=== PATIENT | male | born 1965 | race African-American/Black ===

== ENCOUNTER 2020-10-16 18:50 | Inpatient (IN) | payer BC, OTHER ==
[~2020-10-16] VITALS: Ht 188 cm; Wt 106.8 kg
[2020-10-16] MEDS ORDERED: SODIUM CHLORIDE FLUSH 10ML SYR IVF ONE (19:30)
[2020-10-16] MEDS ORDERED: SODIUM CHLORIDE 0.9% 1,000ML IVBOLUS ONE (19:30)
--- NOTE | 2020-10-16 19:34 | NUR ---
po fluids given
[2020-10-16 19:43] LABS: BASOPHILS % (AUTO) 0 % (0-1); EOSINOPHILS % (AUTO) 0 % (1-7); LYMPHOCYTES % (AUTO) 15 % (22-44); MEAN CORPUSCULAR HEMOGLOBIN 29.8 pg (27.5-34.5); MEAN CORPUSCULAR HGB CONC 34.2 g/dL (33.2-36.2); MEAN PLATELET VOLUME 7.7 fL (7.4-10.4); MONOCYTES % (AUTO) 10 % (2-9); NEUTROPHILS % (AUTO) 75 % (42-75); PLATELET COUNT 322 x10^3/uL (130-400); RED BLOOD COUNT 4.46 x10^6/uL (4.38-5.82); RED CELL DISTRIBUTION WIDTH 12.6 % (9.4-14.8)
[2020-10-16 19:55] LABS: ALANINE AMINOTRANSFERASE 53 U/L (12-78); ALBUMIN 3.1 g/dL (3.4-5.0); ANION GAP 6 mmol/L (5-15); CALCIUM 8.4 mg/dL (8.5-10.1); CHLORIDE 96 mmol/L (98-107); CREATININE 1.65 mg/dL (0.7-1.3)
[2020-10-16 20:00] LABS: ALKALINE PHOSPHATASE 170 U/L (45-117); BILIRUBIN,TOTAL 1.9 mg/dL (0.2-1.0); TOTAL PROTEIN 7.2 g/dL (6.4-8.2); TROPONIN I < 0.015 ng/mL (0.000-0.045)
--- NOTE | 2020-10-16 21:15 | NUR ---
pt resting in bed in nad
[2020-10-16] MEDS ORDERED: HYDR12.59 PO (21:37)
[2020-10-16] MEDS ORDERED: CEFTRIAXONE 1,000 MG ONE (21:47)
[2020-10-16] MEDS ORDERED: CEFTRIAXONE 1,000 MG IM ONE (22:00)
[2020-10-16] MEDS ORDERED: AZITHROMYCIN 500 MG in SODIUM CHLORIDE 0.9% 250 ML IV ONE (22:00)
[2020-10-16] MEDS ORDERED: SODIUM CHLORIDE 0.9%, 500ML IVBOLUS ONE (22:00)
--- NOTE | 2020-10-16 22:12 | NUR ---
rport to dione pt to floor with tech
--- NOTE | 2020-10-16 22:15 | NUR ---
blood cultures were drawn before abx given
[2020-10-16] MEDS ORDERED: ONDANSETRON ODT 4 MG PO PRN (22:30)
[2020-10-16] MEDS ORDERED: BISACODYL 10 MG SUPP PR PRN (22:30)
[2020-10-16] MEDS ORDERED: POLYETHYLENE GLYCOL 17 GM PACKET PO PRN (22:30)
[2020-10-16 22:46] VITALS: BP 122/79
[2020-10-16 22:53] LABS: C-REACTIVE PROTEIN, QUANT 9.2 mg/dL (0.02-0.49); D-DIMER (DIC) 2.31 ug/mlFEU (0.00-0.52); PROTIME 10.7 Seconds (9.6-11.5)
[2020-10-16] MEDS: NS + 20MEQ KCL 1,000 ML IV SCH (23:28)
[2020-10-16] MEDS: HEPARIN 5,000 UNITS/ML, 1ML SQ SCH (23:28)
[2020-10-16] MEDS: ASCORBIC ACID 500 MG TABLET PO SCH (23:28)
[2020-10-17] MEDS: AZITHROMYCIN 500 MG in SODIUM CHLORIDE 0.9% 250 ML IV SCH ×2 (00:18→23:52)
[2020-10-17 02:42] VITALS: BP 121/79
[2020-10-17 05:03] LABS: BASOPHILS % (AUTO) 0 % (0-1); EOSINOPHILS % (AUTO) 0 % (1-7); LYMPHOCYTES % (AUTO) 17 % (22-44); MEAN CORPUSCULAR HEMOGLOBIN 30.3 pg (27.5-34.5); MEAN CORPUSCULAR HGB CONC 34.2 g/dL (33.2-36.2); MONOCYTES % (AUTO) 9 % (2-9); NEUTROPHILS % (AUTO) 74 % (42-75); PLATELET COUNT 309 x10^3/uL (130-400); RED BLOOD COUNT 4.07 x10^6/uL (4.38-5.82); RED CELL DISTRIBUTION WIDTH 12.5 % (9.4-14.8)
[2020-10-17 05:08] LABS: CHLORIDE 98 mmol/L (98-107)
[2020-10-17 05:12] LABS: ANION GAP 5 mmol/L (5-15); CALCIUM 7.9 mg/dL (8.5-10.1); CREATININE 1.42 mg/dL (0.7-1.3)
[2020-10-17 06:45] VITALS: BP 122/77
[2020-10-17] MEDS: ACETAMINOPHEN 325 MG TABLET PO PRN ×2 (08:36→14:33)
[2020-10-17] MEDS: HEPARIN 5,000 UNITS/ML, 1ML SQ SCH ×3 (08:37→23:52)
[2020-10-17] MEDS: SENNA/DOCUSATE TABLET PO SCH (08:37)
[2020-10-17] MEDS: CHOLECALCIFEROL 5,000u TAB PO SCH (08:37)
[2020-10-17] MEDS: ASCORBIC ACID 500 MG TABLET PO SCH ×2 (08:37→17:00)
[2020-10-17] MEDS: ZINC SULFATE 220 MG CAPSULE PO SCH (08:37)
[2020-10-17] MEDS: NS + 20MEQ KCL 1,000 ML IV SCH (08:48)
[2020-10-17 12:23] VITALS: BP 111/70
[2020-10-17] MEDS ORDERED: DEXAMETHASONE 4 MG/ML, 1ML IVPush ONE (17:00)
[2020-10-17] MEDS ORDERED: ASCORBIC ACID 250 MG TAB ONE (17:21)
[2020-10-17 19:26] VITALS: BP 136/80
[2020-10-17] MEDS ORDERED: CEFTRIAXONE 1,000 MG in DEXTROSE 5% 50 ML IVPB SCH (22:30)
[2020-10-18 01:40] VITALS: BP 124/77
[2020-10-18 05:33] LABS: BASOPHILS % (AUTO) 1 % (0-1); EOSINOPHILS % (AUTO) 0 % (1-7); LYMPHOCYTES % (AUTO) 9 % (22-44); MEAN CORPUSCULAR HEMOGLOBIN 29.4 pg (27.5-34.5); MEAN CORPUSCULAR HGB CONC 33.4 g/dL (33.2-36.2); MEAN PLATELET VOLUME 7.9 fL (7.4-10.4); MONOCYTES % (AUTO) 6 % (2-9); NEUTROPHILS % (AUTO) 84 % (42-75); PLATELET COUNT 419 x10^3/uL (130-400); RED BLOOD COUNT 4.27 x10^6/uL (4.38-5.82); RED CELL DISTRIBUTION WIDTH 12.4 % (9.4-14.8)
[2020-10-18 05:47] LABS: ALBUMIN 2.6 g/dL (3.4-5.0); ANION GAP 6 mmol/L (5-15); CHLORIDE 102 mmol/L (98-107)
[2020-10-18 05:52] LABS: ALANINE AMINOTRANSFERASE 42 U/L (12-78); ALKALINE PHOSPHATASE 166 U/L (45-117); BILIRUBIN,TOTAL 1.7 mg/dL (0.2-1.0); CREATININE 1.07 mg/dL (0.7-1.3); TOTAL PROTEIN 6.5 g/dL (6.4-8.2)
[2020-10-18 07:44] VITALS: BP 120/78
[2020-10-18] MEDS: CHOLECALCIFEROL 5,000u TAB PO SCH (08:34)
[2020-10-18] MEDS: ASCORBIC ACID 500 MG TABLET PO SCH (08:34)
[2020-10-18] MEDS: HEPARIN 5,000 UNITS/ML, 1ML SQ SCH (08:34)
[2020-10-18] MEDS: SENNA/DOCUSATE TABLET PO SCH (08:34)
[2020-10-18] MEDS: ZINC SULFATE 220 MG CAPSULE PO SCH (08:34)
[2020-10-18] MEDS ORDERED: ASCO500T9 PO (10:47)
[2020-10-18] MEDS ORDERED: CEFD300C37 PO (10:47)
[2020-10-18] MEDS ORDERED: CHOL500045 PO (10:47)
[2020-10-18] MEDS ORDERED: ZINC220C8 PO (10:47)
[2020-10-18] MEDS ORDERED: AZIT250T PO (10:48)
[2020-10-18] MEDS ORDERED: PRED20TA PO (11:02)
== END 2020-10-18 12:42 | disposition home or self-care (01) | DRG 177 ==
LOC: ED 19:35 → EDIP 22:23 → 3N 22:39
PROVIDERS: ADMIT Internal Medicine; ATTEND Hospitalist
DX: U07.1 COVID-19 (principal); N17.0 Acute kidney failure with tubular necrosis; J15.9 Unspecified bacterial pneumonia; J12.82 Pneumonia due to coronavirus disease 2019; E87.1 Hypo-osmolality and hyponatremia; I10 Essential (primary) hypertension; E87.6 Hypokalemia; E86.0 Dehydration; Z82.49 Family history of ischemic heart disease and other diseases of the circulatory system; Z79.899 Other long term (current) drug therapy
CPT/HCPCS: 36415; 71045; 71275; 80048; 80053; 82728; 83605; 83615; 84145; 84484; 85025; 85049; 85379; 85384; 85610; 85730; 86140; 87040; 93005; 96365; 96372; G0378; J0456; J0696; J1100; J1644; J3480; U0005; J7030; J7040; J7050; U0003